=== PATIENT | male | born 1990 | race Caucasian/White ===

== ENCOUNTER → 2020-07-15 13:02 | Outpatient (CLI) | payer OTHER, SELFPAY ==
[2020-07-15 20:23] LABS: COVID19 - ORCAS (NP or Nasal) Negative (Negative)
== END ==
PROVIDERS: PCP Family Medicine; Visit Provider Physician Assistant Medical
DX: Z20.822 Contact with and (suspected) exposure to COVID-19 (principal)
CPT/HCPCS: U0003

== ENCOUNTER → 2025-01-30 13:42 | Outpatient (CLI) | payer OTHER, SELFPAY ==
--- NOTE | 2025-01-30 13:43 | DI.MRI.S_ITS ---
PROCEDURE: MR ANKLE RT WO CON
== END ==
LOC: MRI 13:42
PROVIDERS: PCP Family Medicine; Referring Provider Family Medicine; Visit Provider Physician Assistant
DX: S93.431A Sprain of tibiofibular ligament of right ankle, initial encounter (principal); S93.491A Sprain of other ligament of right ankle, initial encounter; S93.421A Sprain of deltoid ligament of right ankle, initial encounter; S96.911A Strain of unspecified muscle and tendon at ankle and foot level, right foot, initial encounter; S93.411D Sprain of calcaneofibular ligament of right ankle, subsequent encounter; M65.971 Unspecified synovitis and tenosynovitis, right ankle and foot; M25.571 Pain in right ankle and joints of right foot; Y99.0 Civilian activity done for income or pay
CPT/HCPCS: 73721